=== PATIENT | male | born 1975 ===

== ENCOUNTER 2022-03-02 15:21 | Emergency (ER) | payer SELFPAY ==
[2022-03-02 16:38] VITALS: BP 148/96
[2022-03-02] MEDS ORDERED: dexAMETHasone 4 MG/ML VIAL PO ONE (18:18)
[2022-03-02] MEDS ORDERED: PENICILLIN G BENZATHINE 1.2 MILLION UNIT/2 ML INJ IM ONE (18:18)
[2022-03-02] MEDS ORDERED: ACETAMINOPEN W/CODEINE 120-12MG ORAL LIQD 5 ML PO STA (18:18)
--- NOTE | 2022-03-02 19:22 | Emergency Department Report ---
ED ENT HPI - General Chief complaint: Sore Throat Stated complaint: ABSCESS Time Seen by Provider: 03/02/22 18:16 Source: patient Mode of arrival: Ambulatory Limitations: No Limitations - History of Present Illness MD complaint: sore throat -: Gradual Location: throat Severity: mild, moderate Quality: dull Consistency: constant Worsens with: none Associated Symptoms: pain with swallowing, sore throat. denies: gum swelling, toothache, discharge from ear - Related Data Previous Rx's Medication Instructions Recorded Last Taken Type Chlorhexidine Mouthwash [Peridex] 15 ml MM BID #1 bottle 03/02/22 Unknown Rx Lidocaine Viscous 2% 5 ml MM Q3H PRN #120 udc 03/02/22 Unknown Rx Allergies Allergy/AdvReac Type Severity Reaction Status Date / Time No Known Allergies Allergy Unverified 03/02/22 16:41 ED Dental HPI - General Chief complaint: Sore Throat Stated complaint: ABSCESS Time Seen by Provider: 03/02/22 18:16 Source: patient Mode of arrival: Ambulatory Limitations: No Limitations - Related Data Previous Rx's Medication Instructions Recorded Last Taken Type Chlorhexidine Mouthwash [Peridex] 15 ml MM BID #1 bottle 03/02/22 Unknown Rx Lidocaine Viscous 2% 5 ml MM Q3H PRN #120 udc 03/02/22 Unknown Rx Allergies Allergy/AdvReac Type Severity Reaction Status Date / Time No Known Allergies Allergy Unverified 03/02/22 16:41 ED Review of Systems ROS: Stated complaint: ABSCESS Other details as noted in HPI Comment: All other systems reviewed and negative ED Past Medical Hx - Past Medical History Previous Medical History?: Yes Hx HIV: Yes - Medications Home Medications: Home Medications Medication Instructions Recorded Confirmed Last Taken Type Chlorhexidine Mouthwash [Peridex] 15 ml MM BID #1 bottle 03/02/22 Unknown Rx Lidocaine Viscous 2% 5 ml MM Q3H PRN #120 udc 03/02/22 Unknown Rx ED Physical Exam - General Limitations: No Limitations General appearance: alert, in no apparent distress - Head Head exam: Present: atraumatic, normocephalic - Eye Eye exam: Present: normal appearance, PERRL Pupils: Present: normal accommodation - ENT ENT exam: Present: normal exam, normal orophraynx, mucous membranes moist, other (pharynx red and swollen with exudate. swelling to the left greater but airway patent. normal voice. no drooling. ) - Neck Neck exam: Present: normal inspection - Respiratory Respiratory exam: Present: normal lung sounds bilaterally. Absent: respiratory distress - Cardiovascular Cardiovascular Exam: Present: regular rate, normal rhythm. Absent: systolic murmur, diastolic murmur, rubs, gallop - GI/Abdominal GI/Abdominal exam: Present: soft, normal bowel sounds - Rectal Rectal exam: Present: deferred - Extremities Exam Extremities exam: Present: normal inspection - Back Exam Back exam: Present: normal inspection - Neurological Exam Neurological exam: Present: alert, oriented X3 - Psychiatric Psychiatric exam: Present: normal affect, normal mood - Skin Skin exam: Present: warm, dry, intact, normal color. Absent: rash ED Course Vital Signs 03/02/22 16:35 Temperature 99.5 F Pulse Rate 78 Respiratory 16 Rate Blood Pressure 148/96 [Left] O2 Sat by Pulse 98 Oximetry Critical care attestation.: If time is entered above; I have spent that time in minutes in the direct care of this critically ill patient, excluding procedure time. ED Disposition Clinical Impression: Exudative pharyngitis Disposition: 01 HOME / SELF CARE / HOMELESS Is pt being admited?: No Does the pt Need Aspirin: No Condition: Stable Instructions: Strep Throat, Adult, [id number], Strep Throat, Adult, Pharyngitis Prescriptions: Lidocaine Viscous 2% 5 ml MM Q3H PRN #120 udc PRN Reason: Pain, Moderate (4-6) Chlorhexidine Mouthwash [Peridex] 15 ml MM BID #1 bottle Referrals: [facility] [Provider Group] - 3-5 Days
== END 2022-03-02 23:59 | disposition home or self-care (01) ==
LOC: ED 15:21
DX: J02.9 Acute pharyngitis, unspecified (principal); Z79.899 Other long term (current) drug therapy
CPT/HCPCS: 96372; 99282; J0561; J1100